=== PATIENT | female | born 2000 | race Caucasian/White ===

== ENCOUNTER 2018-08-04 06:55 | Emergency (ER) | payer BC ==
[~2018-08-04 06:55] MED LIST changes: -IVAB7.5T PO
[2018-08-04] MEDS ORDERED: IVAB7.5T PO (07:05)
--- NOTE | 2018-08-04 07:30 | ER Report ---
History and Physical Time Seen By MD: 07:15 Hx. of Stated Complaint: PATIENT REPORTS THAT SHE STARTED FEELING SHORT OF BREATH THIS MORNING AT WORK. SHE REPORTS SMELLING A STRONG CHEMICAL SMELL THIS MORNING AT HER JOB. SHE IS A [employer] AT THE [employer] AND THERE WAS A CHLORINE SPILL YESTERDAY. EMS REPORTS THAT SHE WAS DIAPHORETIC AT WORK. SKIN IS WARM AND DRY UPON ARRIVAL TO EMERGENCY DEPARTMENT HPI/ROS CHIEF COMPLAINT: Hyperventilation HISTORY OF PRESENT ILLNESS: Otherwise healthy 18-year-old female presents emerge ncy Department today with complaint of hyperventilation. Patient states that she was exposed to a heavy dose of chlorinated chlorinated air and subsequently since and felt very lightheaded and began hyperventilating on arrival here had carpal pedal spasm patient states that this is happening to her before. Patient has no chest pain and said that she has had a vasovagal syncope episode in the past but this feels different than the patient denies any additional complaints at this time. Patient does state however that she has been diagnosed couple weeks ago with a was referred to is a very nasty virus and has not been feeling great when she arrived work today she felt okay but subsequently since he aerosolize exposure evidently the day before there was reportedly an evacuation of the building due to over exposure of chemicals in the air. REVIEW OF SYSTEMS: Respiratory: No cough shortness of breath hyperventilation Cardiovascular: No chest pain, no palpitations. Gastrointestinal: No vomiting, no abdominal pain. Musculoskeletal: No back pain. Remainder of the 14 system rev: Yes Allergies: Coded Allergies: No Known Drug Allergies (Unverified , 05/11/17) Home Meds Reported Medications Ivabradine HCl (Corlanor) 7.5 Mg Tablet, MG PO BID 08/04/18 Discontinued Reported Medications Diltiazem Hcl (DILTIAZEM ER) 120 Mg Capsule.er, 120 MG PO DAILY 05/11/17 Reviewed Nurses Notes: Yes Old Medical Records Reviewed: Yes Constitutional Vital Sign - Last 24 Hours 08/04/18 06:58 Temp 97.8 Pulse 74 Resp 28 B/P (MAP) 131/81 Pulse Ox 100 O2 Delivery Room Air Physical Exam General Appearance: The patient is alert, has no immediate need for airway protection and no current signs of toxicity. Eyes on arrival had carpopedal spasm was placed on a mask and her symptoms resolved Eyes: Pupils equal and round no injection. Respiratory: Chest is non tender, lungs are clear to auscultation. Cardiac: regular rate and rhythm [ ] Gastrointestinal: Abdomen is soft and non tender, no masses, bowel sounds normal. Musculoskeletal: Neck: Neck is supple and non tender. Extremities have full range of motion and are non tender. Skin: No rashes or lesions. [ ] DIFFERENTIAL DIAGNOSIS: After history and physical exam differential diagnosis was considered for chemical exposure hyperventilation anxiety Medical Decision Making Data Points Result Diagram: 08/04/18 0732 Laboratory Hematology Test 08/04/18 07:20 08/04/18 07:32 Urine Color Yellow Urine Clarity Clear Urine pH 8.0 pH (4.8-9.5) Urine Specific [place] 1.015 Urine Protein Negative mg/dL (NEGATIVE) Urine Glucose (UA) Negative mg/dL (NEGATIVE) Urine Ketones Negative mg/dL (NEGATIVE) Urine Blood Negative (NEGATIVE) Urine Nitrite Negative (NEGATIVE) Urine Bilirubin Negative (NEGATIVE) Urine Urobilinogen Negative mg/dL (0.2-1.9) Urine Leukocyte Esterase Negative (NEGATIVE) Urine RBC <1 /HPF (0-2/HPF) Urine WBC 1 /HPF (0-5/HPF) Urine Squamous Epithelial Cells Few /LPF (</=FEW) Urine Bacteria Negative /HPF (NONE-FEW) Urine Mucus None /HPF (NONE-FEW) Urine HCG, Qualitative Negative (NEGATIVE) Red Blood Count 4.88 M/uL (4.17-5.56) Mean Corpuscular Volume 87.7 fL (80.0-96.0) Mean Corpuscular Hemoglobin 30.5 pg (26.0-33.0) Mean Corpuscular Hemoglobin Concent 34.7 g/dL (32.0-36.0) Red Cell Distribution Width 12.8 % (11.5-14.5) Mean Platelet Volume 7.8 fL (7.2-11.1) Neutrophils (%) (Auto) 57.1 % (39.4-72.5) Lymphocytes (%) (Auto) 35.5 % (17.6-49.6) Monocytes (%) (Auto) 5.8 % (4.1-12.4) Eosinophils (%) (Auto) 1.2 % (0.4-6.7) Basophils (%) (Auto) 0.4 % (0.3-1.4) Nucleated RBC Relative Count (auto) 0.0 /100WBC Neutrophils # (Auto) 4.2 K/uL (2.0-7.4) Lymphocytes # (Auto) 2.6 K/uL (1.3-3.6) Monocytes # (Auto) 0.4 K/uL (0.3-1.0) Eosinophils # (Auto) 0.1 K/uL (0.0-0.5) Basophils # (Auto) 0.0 K/uL (0.0-0.1) Nucleated RBC Absolute Count (auto) 0.00 K/uL Chemistry Test 08/04/18 07:20 08/04/18 07:32 Urine Color Yellow Urine Clarity Clear Urine pH 8.0 pH (4.8-9.5) Urine Specific [place] 1.015 Urine Protein Negative mg/dL (NEGATIVE) Urine Glucose (UA) Negative mg/dL (NEGATIVE) Urine Ketones Negative mg/dL (NEGATIVE) Urine Blood Negative (NEGATIVE) Urine Nitrite Negative (NEGATIVE) Urine Bilirubin Negative (NEGATIVE) Urine Urobilinogen Negative mg/dL (0.2-1.9) Urine Leukocyte Esterase Negative (NEGATIVE) Urine RBC <1 /HPF (0-2/HPF) Urine WBC 1 /HPF (0-5/HPF) Urine Squamous Epithelial Cells Few /LPF (</=FEW) Urine Bacteria Negative /HPF (NONE-FEW) Urine Mucus None /HPF (NONE-FEW) Urine HCG, Qualitative Negative (NEGATIVE) White Blood Count 7.4 k/uL (4.5-11.0) Red Blood Count 4.88 M/uL (4.17-5.56) Hemoglobin 14.9 g/dL (12.0-16.0) Hematocrit 42.8 % (34.0-47.0) Mean Corpuscular Volume 87.7 fL (80.0-96.0) Mean Corpuscular Hemoglobin 30.5 pg (26.0-33.0) Mean Corpuscular Hemoglobin Concent 34.7 g/dL (32.0-36.0) Red Cell Distribution Width 12.8 % (11.5-14.5) Platelet Count 376 K/uL (150-450) Mean Platelet Volume 7.8 fL (7.2-11.1) Neutrophils (%) (Auto) 57.1 % (39.4-72.5) Lymphocytes (%) (Auto) 35.5 % (17.6-49.6) Monocytes (%) (Auto) 5.8 % (4.1-12.4) Eosinophils (%) (Auto) 1.2 % (0.4-6.7) Basophils (%) (Auto) 0.4 % (0.3-1.4) Nucleated RBC Relative Count (auto) 0.0 /100WBC Neutrophils # (Auto) 4.2 K/uL (2.0-7.4) Lymphocytes # (Auto) 2.6 K/uL (1.3-3.6) Monocytes # (Auto) 0.4 K/uL (0.3-1.0) Eosinophils # (Auto) 0.1 K/uL (0.0-0.5) Basophils # (Auto) 0.0 K/uL (0.0-0.1) Nucleated RBC Absolute Count (auto) 0.00 K/uL Urinalysis Test 08/04/18 07:20 Urine Color Yellow Urine Clarity Clear Urine pH 8.0 pH (4.8-9.5) Urine Specific [place] 1.015 Urine Protein Negative mg/dL (NEGATIVE) Urine Glucose (UA) Negative mg/dL (NEGATIVE) Urine Ketones Negative mg/dL (NEGATIVE) Urine Blood Negative (NEGATIVE) Urine Nitrite Negative (NEGATIVE) Urine Bilirubin Negative (NEGATIVE) Urine Urobilinogen Negative mg/dL (0.2-1.9) Urine Leukocyte Esterase Negative (NEGATIVE) Urine RBC <1 /HPF (0-2/HPF) Urine WBC 1 /HPF (0-5/HPF) Urine Squamous Epithelial Cells Few /LPF (</=FEW) Urine Bacteria Negative /HPF (NONE-FEW) Urine Mucus None /HPF (NONE-FEW) Urine HCG, Qualitative Negative (NEGATIVE) ED Course/Re-evaluation ED Course ED course medical decision making 18-year-old female who presented with hyperventilation presumably from a potential aerosolize exposure of chlorine gas patient was much better after arrival test and negative discharge diagnoses exposure by systemic Ethan gas until the environment is clear Decision to Disposition Date: Aug 04, 2018 Decision to Disposition Time: 08:33 Depart Departure Latest Vital Signs Vital Signs Date Time Temp Pulse Resp B/P (MAP) Pulse Ox O2 Delivery O2 Flow Rate FiO2 08/04/18 06:58 97.8 74 28 131/81 100 Room Air Impression: Primary Impression: Hyperventilation Condition: Improved Disposition: HOME OR SELF-CARE Patient Instructions: Hyperventilation (ED) TERESA HUITRON MD Aug 04, 2018 07:30
[2018-08-04 07:39] LABS: PLATELET COUNT, AUTOMATED 376 K/uL (150-450)
--- NOTE | 2018-08-04 07:50 | EKG ---
FACILITY: [facility] PATIENT NAME: ANNAMARIA RODRIGUEZ : [id number] MR: [id number] V: [id number] EXAM DATE: ORDERING PHYSICIAN: TERESA HUITRON TECHNOLOGIST: ELAYNE Campos Reason : Blood Pressure : / mmHG Vent. Rate : 059 BPM Atrial Rate : 059 BPM P-R Int : 130 ms QRS Dur : 092 ms QT Int : 438 ms P-R-T Axes : 072 081 048 degrees QTc Int : 433 ms Sinus bradycardia Probable left atrial enlargement Nonspecific interventricular conduction delay Nonspecific ST-T findings V2-4 Borderline ECG Confirmed by DYLAN AGUIRRE ([id number]) on 08/04/2018 9:37:03 PM Referred By: Confirmed By:DYLAN AGUIRRE
--- NOTE | 2018-08-04 08:23 | RADIOLOGY IMAGING REPORT ---
FACILITY: [facility] PATIENT NAME: Pearl Chopra : 2000 MR: [id number] V: [id number] EXAM DATE: ORDERING PHYSICIAN: TERESA HUITRON TECHNOLOGIST: Location: [facility] [place] Patient: Pearl Chopra : 2000 Visit/Account:[id number] Date of Sevice: 08/04/2018 Exam type: CHEST PA LAT History: Exposed to chemicals this morning, hyperventilating, shortness of breath weakness Comparison: None. Findings: The lungs are free of acute effusions, infiltrates or edema. There is no evidence of a pneumothorax or pneumomediastinum. The cardiac silhouette is normal in size. The visualized bones are unremarkab le for age IMPRESSION: 1. No acute cardiopulmonary process is seen Report Dictated By: Ivelisse Troncoso MD at 08/04/2018 8:18 AM Report E-Signed By: Ivelisse Troncoso MD at 08/04/2018 8:19 AM WSN:[id number]
[2018-08-04 08:37] VITALS: BP 124/72
== END 2018-08-04 08:42 | disposition home or self-care (01) ==
LOC: ER 07:10
DX: R06.4 Hyperventilation (principal)
CPT/HCPCS: 71046; 81001; 81025; 85025; 93005; 99283

== ENCOUNTER → 2018-08-04 | Outpatient (CLI) | payer BC ==
[~2018-08-04] MED LIST: DILT120C4 PO; IVAB7.5T PO
== END ==
LOC: AMB 06:40
PROVIDERS: ATTEND Nurse Practitioner
DX: R09.02 Hypoxemia (principal)
CPT/HCPCS: A0425; A0429

== ENCOUNTER → 2018-12-29 | Outpatient (CLI) | payer BC ==
[~2018-12-29] MED LIST changes: +IVAB7.5T PO; +NORE-7 PO
[2018-12-29 10:44] LABS: PLATELET COUNT, AUTOMATED 299 K/uL (150-450)
== END ==
LOC: LAB 10:21
PROVIDERS: ATTEND Internal Medicine
DX: R42 Dizziness and giddiness (principal); R51 Headache; R00.0 Tachycardia, unspecified
CPT/HCPCS: 36415; 82040; 82247; 82310; 82374; 82435; 82565; 82947; 84075; 84132; 84155; 84295; 84443; 84450; 84460; 84520; 85025